=== PATIENT | female | born 1955 | race Caucasian/White ===

== ENCOUNTER → 2024-02-21 08:17 | Outpatient (REF) | payer MEDICARE, OTHER, SELFPAY | LOC: HWRAD 08:17 | PROVIDERS: ATTENDING PHYSICIAN Internal Medicine Hematology & Oncology; FAMILY PHYSICIAN Family Medicine | DX: Z12.31 Encounter for screening mammogram for malignant neoplasm of breast (principal); C50.512 Malignant neoplasm of lower-outer quadrant of left female breast; Z78.0 Asymptomatic menopausal state | CPT/HCPCS: 77063; 77067; 77080 ==

== ENCOUNTER → 2025-03-25 08:34 | Outpatient (REF) | payer MEDICARE, OTHER, SELFPAY | LOC: HWWDC 08:34 | PROVIDERS: ATTENDING PHYSICIAN Internal Medicine Hematology & Oncology; FAMILY PHYSICIAN Family Medicine | DX: Z12.31 Encounter for screening mammogram for malignant neoplasm of breast (principal) | CPT/HCPCS: 77063; 77067 ==

== ENCOUNTER 2025-04-16 08:00 | Emergency (ER) | payer MEDICARE, OTHER, SELFPAY ==
[2025-04-16 08:03] VITALS: BP 164/100
[2025-04-16 08:53] VITALS: BMI 40.4
[2025-04-16] MEDS: TORADOL 30 MG IV (09:01)
[2025-04-16 09:05] LABS: Hematocrit 39.3 % (37.0-47.0); Hemoglobin 13.0 g/dL (12.0-16.0); Mean Corp Hgb Conc. 33.1 g/dL (33.0-37.0); Mean Corpuscular Volume 93.6 fL (81.0-99.0); Nucleated Red Blood Cells % 0 %; Platelet Count 206 10^3/uL (130-400); Red Cell Dist. Width 13.5 % (11.5-14.5)
[2025-04-16 09:23] LABS: ALT (SGPT) 16 U/L (0-35); AST (SGOT) 22 U/L (14-36); Albumin 3.9 g/dl (3.5-5.0); Alkaline Phosphatase 85 U/L (38-126); Blood Urea Nitrogen 23 mg/dl (7-17); Calcium 9.3 mg/dl (8.4-10.2); Carbon Dioxide 28 mmol/L (22-30); Chloride 110 mmol/L (98-107); Estimated Creatinine Clearance 107 ml/min; Glucose 107 mg/dl (70-99); Potassium 4.3 mmol/L (3.5-5.1); Sodium 140 mmol/L (135-145); Total Protein 6.8 g/dl (6.3-8.2); eGFR > 60.00
[2025-04-16 10:19] VITALS: BP 134/70
--- NOTE | 2025-04-16 13:54 | ED.GENMED ---
History of Present Illness
General
Chief Complaint: Headache
Source: patient
Exam Limitations: none
Time Seen by Provider: 04/16/25 08:13
Nursing documentation reviewed up to this point in time: agreed with
History of Present Illness
History of Present Illness:
SEE mdm
Past History
Past History
ED Past Medical History: Cancer (Breast cancer, status post lumpectomy) and Other (Osteopenia, kidney stone)
ED Past Surgical History: Other (Left breast lumpectomy)
Social History
Tobacco: Non-smoker
Personal:
Living: with family
Employment: Employed
Family History
Family History: Negative Early CAD
Phy Exam
Physical Exam
Physical Exam:
GENERAL: Alert , in no apparent distress
HEAD: NCAT
Posterior occipital region nontender, no mastoid tenderness, no redness, no lumps,
EYE: pupils equal and reactive, no nystagmus, no photophobia
NECK: Supple,full rom, nontender nontender full painless range of motion cervical spine
ENT: o/p clr, mmm. TMs bilaterally normal, no signs of infection, hearing intact, auricles normal
CARDIAC: Regular rate and rhythm . no edema
LUNGS: Clear breath sounds bilaterally, no acute respiratory distress, no wheezes/rales/rhonchi
ABDOMEN: Soft, without focal tenderness, no r/g, no cvat
NEUROLOGICAL: Alert and orientedx 4, cn intact, no facial asymmetry, 5/5 strength in UE/LE, sensation intact, romberg neg, ambulates without assistance, neg pronator drift
SKIN: Warm and dry, skin intact.
MUSCULOSKELETAL: No edema, well perfused.
PSYCH: Normal and appropriate interaction.
Course
Orders/Labs/Results
Orders:
Orders
04/16/25 08:35
CT Head W/o Iv Contrast Urgent
Comment:
Reason For Exam: R occipital pain
CT Temporal-iac W/o Iv Contras Urgent
Comment:
Reason For Exam: R temporal bone pain
Ketorolac [Toradol] 30 mg IV NOW STA
04/16/25 08:59
Complete Blood Count/With Diff Urgent
Comprehensive Metabolic Panel Urgent
Abnormal Lab Results
04/16/25
08:59
Monocytes % 9.9 H %
(1.7-9.3)
Chloride 110 H mmol/L
(98-107)
BUN 23 H mg/dl
(7-17)
Glucose 107 H mg/dl
(70-99)
04/16/25 08:59
04/16/25 08:59
Vital Signs
Initial and Last Documented VS:
Initial Vital Signs
Temp Pulse Resp BP Pulse Ox
36.4 C 95 16 164/100 97
04/16/25 08:03 04/16/25 08:03 04/16/25 08:03 04/16/25 08:03 04/16/25 08:03
Last Documented Vital Signs
Temp Pulse Resp BP Pulse Ox
36.4 C 95 16 134/70 99
04/16/25 08:03 04/16/25 08:03 04/16/25 08:03 04/16/25 10:19 04/16/25 10:18
MDM/Problems Addressed
Differential Diagnosis Includes:
see MDM
MDM/Problems Addressed:
Note:
CHIEF COMPLAINT(S)
Headache with pressure behind the ear.
HISTORY OF PRESENT ILLNESS
The patient is a female who presents with a chief complaint of headache characterized by pressure localized behind the ear, described initially as a mild pain in the ear that started suddenly on 3 days ago after going to a concert. On Monday night,
the pain intensified, described by the patient as 'it got where it really hurt.' The patient self-managed with Tylenol and noted improvement on Monday, although she continued to feel some residual mild discomfort. last night, the pain once again
intensified more to 7/10. The patient describes the current intensity of the pain as 4 out of 10, whereas last night it reached a 7 out of 10 on her pain scale. The patient denies any associated buzzing or new ringing, although there is a chronic
history of low humming tinnitus for about a year, which is more noticeable at night but she has grown accustomed to it. The patient denies any hearing loss, dizziness, vision changes, neck pain, numbness, weakness, changes in speech, confusion, or
fever. She mentioned no aggravating factors, although she noticed the pain more acutely when laying down to sleep. She denies any recent dental issues and her last dental visit was two months ago. She has not been evaluated by an Ear, Nose, and
Throat specialist for these symptoms. The patient notes no chronic stress or trauma.
no hearing changes.
PAST MEDICAL AND SURIGICAL HISTORY
The patient has a history of breast cancer, stage three, treated in the past. She is not currently on hormone therapy.
SOCIAL DETERMINANTS AFFECTING HEALTH
The patient mentioned spending time at a [employer] and attending a concert at a music festival on Monday before symptoms commenced, indicating potential exposure to loud environments.
REVIEW OF SYSTEMS
- Ear, Nose, and Tongue: Chronic low humming tinnitus, no hearing loss, no recent ear infections.
- Neurological: No dizziness, no headaches previously, no focal neurological deficits such as weakness or numbness. No changes in vision or mental status.
- Musculoskeletal: No neck pain.
PHYSICAL EXAM
- Neurological: No cranial nerve deficits noted. Strength and sensation in upper and lower extremities intact. Reflexes normal. Coordination and gait are normal.
- Ear, Nose, and Tongue: No redness, swelling, or foreign bodies in or around the ear noted. Region behind ear non-tender.
- Nursing notes reviewed and vital signs reviewed.
PROBLEM LIST
Acute:
- Headache with pressure localized behind the ear.
- Chronic humming tinnitus.
Chronic:
- History of stage three breast cancer.
PLAN
1. Obtain a CT scan of the brain to evaluate the structure and rule out significant intracranial pathology such as aneurysms or masses, given the patients symptomatology and history.
2. Conduct basic laboratory tests to exclude systemic causes and rule out potential metabolic contributors.
3. Administer intravenous medications typically utilized for migraine treatment to assess symptom response.
4. Consider referral for further evaluation if symptoms do not resolve or if new symptoms arise, potentially to neurology or an ear, nose, and throat specialist.
5. Discussed the low probability of life-threatening conditions such as stroke or aneurysm based on current presentation, but will proceed with imaging given her age.
DIFFERENTIAL DIAGNOSIS
The Differential Diagnosis includes, in no particular order and is not limited to:
1. Tension headache
2. Occipital neuralgia
3. Mastoiditis
4. Migraine headache
5. Cervicogenic headache
6. Dental issues, e.g., temporomandibular joint disorders
7. Inner ear disorder
8. Sinusitis
9. Referred otalgia from neck or dental issues
10. Atypical presentation of an intracranial mass
CARE-UPDATE
04/16/25 - 10:20
Patient reports feeling better, with pain rated as a `1/10 down from 5/10. Recent imaging indicates no abnormal findings.
she had headache/pain posterior occipital region without any additional neuro sypmtoms, making this headache less worrisome for aneurysm, stroke.
Patient is advised to monitor for any new symptoms such as dizziness, vision changes, or numbness, which may require further evaluation. Occipital nerve irritation is suspected as the cause of symptoms. Anti-inflammatory treatment has been
initiated with ibuprofen, and prescription-strength ibuprofen 600 mg will be provided. The patient expresses a preference for minimal medication use and is reassured by improvement and lack of severe underlying causes. Blood pressure will be checked
to rule out stress-related elevation - it was improved 130/50s.
d/w ed attending who agreed
*Pulse Oximetry
SaO2: 99
Oxygen Mode of Delivery: Room air
Patient hypoxic: no (97)
*Critical Care Note
Total Time (30-74mins, 75-104mins- exclusive of procedures): Not Applicable
ED Attending Note
-
Portions of this chart may have been created with voice recognition software.� Occasional wrong word or��sound alike� substitutions may have occurred due to the inherent limitations of voice recognition software.
Discharge Plan
Departure
Patient Disposition: Home (Routine Discharge)
Date of Disposition: 04/16/25
Time of Disposition: 10:22
Patient with high blood pressure during this ER visit?: Yes
Condition: Fair
Covid-19: Not Applicable
Discharge Problem:
Headache
Instructions: Headache, Adult (DC)
Prescriptions:
New
ibuprofen 600 mg tablet
600 mg PO Q8H PRN (Reason: Pain) Qty: 20 0RF
No Action
ondansetron 8 mg tablet,disintegrating
8 mg PO TID PRN (Reason: nausea and vomiting) Qty: 20 0RF
ketorolac 10 mg tablet
10 mg PO QID PRN (Reason: pain) Qty: 20 0RF
tamsulosin [Flomax] 0.4 mg Capsule
0.4 mg PO DAILY Qty: 7 0RF
oxycodone 5 mg tablet
5 mg PO Q4H PRN (Reason: pain) Qty: 20 0RF
diclofenac sodium 75 mg tablet,delayed release (DR/EC)
75 mg PO BID Qty: 20 0RF
Referrals:
Marianna Viveros DO [Family Provider, Family Practice] - Follow up in 2-3 days
Activity Restrictions/Additional Instructions:
I BELIEVE YOUR HEADACHE IS CERVICOGENIC AND FROM THE AREA IN THE BACK OF THE HEAD WHERE THE NECK MEETS, THERE MAY BE SOME INFLAMMATION THERE
TRY IBUPROFEN 600 MG EVERY 8 HOURS FOR 2-3 DAYS WITH FOOD
THEN ONLY NEEDED
RETURN FOR: SEVERE SUDDEN WORST HEADACHE OF LIFE, HEADACHE ACCOMPANIED BY DIZZINESS, VISION CHANGES, BALANCE PROBLEMS ,NUMBNESS, ETC
OTHERWISE FOLLOW UP WITH YOUR DOCTOR
Interventions
Interventions:
*Risk Screen - Suicide Last Done: 04/16/25 08:06
*General Assessment Last Done: 04/16/25 09:14
*Neglect/Abuse Screening Last Done: 04/16/25 08:06
*ED- Fall Risk Assessment Last Done: 04/16/25 09:14
*ED COVID-19 Vaccine History Last Done: 04/16/25 09:14
*Nursing Disposition Last Done: 04/16/25 11:00
ED- Neurological Assessment Last Done: 04/16/25 10:00
Discharge Date and Time
Discharge Date/Time: 04/16/25 11:51
Print Language: TURKISH
== END 2025-04-16 11:51 | disposition home or self-care (01) ==
LOC: EMR 08:00
PROVIDERS: Physician Assistant; EMERGENCY PHYSICIAN Emergency Medicine; FAMILY PHYSICIAN Family Medicine
DX: R51.9 Headache, unspecified (principal); R03.0 Elevated blood-pressure reading, without diagnosis of hypertension; M85.80 Other specified disorders of bone density and structure, unspecified site; Z85.3 Personal history of malignant neoplasm of breast
CPT/HCPCS: 99284; 96374; 70450; 70480; 80053; 85025